=== PATIENT | male | born 1980 | race Two or more races ===

== ENCOUNTER 2020-09-28 16:00 | Emergency (ER) | payer OTHER ==
[2020-09-28] MEDS ORDERED: ANUCORT-HC25 MG PR (17:07)
[2020-09-28] MEDS ORDERED: ANUSOL-HC30 GM PR (17:07)
== END 2020-09-28 17:21 | disposition home or self-care (01) ==
LOC: FER 16:00
DX: K64.8 Other hemorrhoids (principal); K64.4 Residual hemorrhoidal skin tags; I10 Essential (primary) hypertension
CPT/HCPCS: 99283

== ENCOUNTER 2021-02-06 08:54 | Emergency (ER) | payer OTHER ==
[~2021-02-06] VITALS: Ht 172.7 cm; Wt 88.0 kg
[~2021-02-06 08:54] MED LIST: ANUCORT-HC25 MG PR; ANUSOL-HC30 GM PR
[2021-02-06] MEDS ORDERED: LISINOPRIL40 MG PO (09:20)
[2021-02-06] MEDS ORDERED: HCTZ25 MG PO (09:20)
[2021-02-06] MEDS ORDERED: METOPROLOL TAR100 MG PO (09:21)
== END 2021-02-06 09:59 | disposition home or self-care (01) ==
LOC: FER 08:54
DX: K64.5 Perianal venous thrombosis (principal); K64.8 Other hemorrhoids; K60.0 Acute anal fissure; I10 Essential (primary) hypertension
CPT/HCPCS: J1885